=== PATIENT | female | born 1955 | race Caucasian/White ===

== ENCOUNTER 2017-06-07 16:28 | Emergency (ER) | payer BC ==
[2017-06-07 17:05] VITALS: BP 145/86; PULSE 61; RESP 18; TEMP 98; O2SAT 100
== END 2017-06-07 18:56 | disposition home or self-care (01) ==
LOC: ED 16:28
DX: M19.072 Primary osteoarthritis, left ankle and foot (principal); R22.42 Localized swelling, mass and lump, left lower limb
CPT/HCPCS: 73630; 99282

== ENCOUNTER 2017-06-22 11:03 | Day surgery (SDC) | payer BC ==
[2017-06-22] MEDS ORDERED: PROPOFOL 500 MG/50 ML EMU IV ONE (11:26)
[2017-06-22] MEDS ORDERED: MIDAZOLAM 2 MG/2 ML SOL ONE (11:28)
[2017-06-22] MEDS ORDERED: FENTANYL 100MCG/2ML SOL ONE (11:29)
[2017-06-22] MEDS ORDERED: LIDOCAINE HCL 1% MPF SOL ONE (11:35)
[2017-06-22] MEDS ORDERED: BUPIVACAINE LIPOSOME 20 ML SUS ONE (11:35)
[2017-06-22] MEDS ORDERED: KETOROLAC TROMETHAMINE 30 MG/ML SOL ONE (14:04)
[2017-06-22] MEDS ORDERED: KETOROLAC TROMETHAMINE 30 MG/ML SOL IV ONE (14:10)
[2017-06-22 15:33] VITALS: BP 137/75; PULSE 58; RESP 20; TEMP 97.4; O2SAT 96
[2017-06-22] MEDS ORDERED: APAP/HYDROCODONE 325/5 TAB ONE (16:14)
== END 2017-06-22 17:20 | disposition home or self-care (01) ==
LOC: SURG 11:03
PROVIDERS: ATTEND Podiatrist
DX: M20.12 Hallux valgus (acquired), left foot (principal)
CPT/HCPCS: 99001; J1885; J2250; J3010; L3260; J2001; J2704

== ENCOUNTER 2018-03-31 20:20 | Emergency (ER) | payer BC, OTHER ==
[2018-03-31 20:50] VITALS: RESP 20; TEMP 96.6
[2018-03-31 21:22] VITALS: BP 142/84; PULSE 88; O2SAT 98
[2018-03-31] MEDS ORDERED: TETRACAINE/BENZOCAINE/BUTAMBEN 200 SPRAY TP ONE (21:52)
[2018-03-31] MEDS ORDERED: TETRACAINE/BENZOCAINE/BUTAMBEN 200 SPRAY ONE (21:53)
[2018-03-31] MEDS ORDERED: BACITRACIN 500 U/GM OIN TOP ONE ×2 (22:33→22:51)
== END 2018-03-31 22:45 | disposition home or self-care (01) ==
LOC: ED 20:20
DX: S01.511A Laceration without foreign body of lip, initial encounter (principal); M25.561 Pain in right knee; W01.0XXA Fall on same level from slipping, tripping and stumbling without subsequent striking against object, initial encounter; R40.2362 Coma scale, best motor response, obeys commands, at arrival to emergency department; R40.2142 Coma scale, eyes open, spontaneous, at arrival to emergency department; R40.2252 Coma scale, best verbal response, oriented, at arrival to emergency department
CPT/HCPCS: 12013; 70450; 70486; 73562; 99283; A6402; A9270-GY